=== PATIENT | female | born 1975 | race Caucasian/White ===

== ENCOUNTER 2022-10-16 03:18 | Observation (INO) ==
[2022-10-16] MEDS ORDERED: ONDANSETRON INJ 2 MG/ML 2 ML VIAL ONE ×2 (03:28→08:18)
[2022-10-16] MEDS ORDERED: MoRPHine SULFATE 4 MG/ML 1 ML CARP\\VIAL IV STA (03:28)
[2022-10-16] MEDS ORDERED: MoRPHine SULFATE 4 MG/ML 1 ML CARP\\VIAL ONE (03:28)
[2022-10-16] MEDS ORDERED: PIPERACILLIN/TAZOBACTAM 4.5 GM/120ML D5W IV ONE (03:28)
[2022-10-16] MEDS ORDERED: ONDANSETRON INJ 2 MG/ML 2 ML VIAL IV STA (03:28)
[2022-10-16] MEDS ORDERED: PIPERACILLIN/TAZOBACTAM 4.5 GM/120 ML BAG IV ONE (03:28)
[2022-10-16] MEDS ORDERED: SODIUM CHLORIDE 0.9% 1000ML 1,000 ML IV STA (03:28)
[2022-10-16 03:54] LABS: Basophils # (auto) 0.01 K/uL (0-0.2); Basophils % (auto) 0.1 %; Eosinophils # (auto) 0.07 K/uL (0-0.50); Eosinophils % (auto) 0.5 %; Hematocrit (blood only) 36.7 % (34.1-44.9); Hemoglobin 12.9 g/dl (12.0-16.0); Immature Granulocytes # (auto) 0.03 K/uL (0.00-0.02); Immature Granulocytes % (auto) 0.2 %; Lymphocytes # (auto) 1.27 K/uL (1.2-3.4); Lymphocytes % (auto) 9.7 %; Mean Corpuscular Hgb Conc 35.1 g/dL (32.0-36.0); Mean Corpuscular Volume 88.2 fL (80.0-100.0); Mean Platelet Volume 9.7 fL (9.4-12.3); Monocytes # (auto) 0.71 K/uL (0.24-0.82); Monocytes % (auto) 5.4 %; Neutrophils % (auto) 84.1 %; Platelet Count 267 K/uL (130-400); RDW Coefficient of Variation 12.3 % (11.5-14.5); RDW Standard Deviation 39.5 fL (36.4-46.3); Red Blood Count 4.16 M/uL (3.93-5.22); White Blood Count 13.09 K/ul (4.8-10.8)
[2022-10-16] MEDS: HYDROmorphone INJ 0.5 MG/0.5 ML SYR IV PRN ×6 (04:03→05:52)
--- NOTE | 2022-10-16 04:18 | Emergency Department Note ---
History of Present Illness General Chief complaint: Vaginal Pain Time Seen by Provider: 10/16/22 03:24 History of Present Illness Maximum Pain Intensity: 10 This 47-year-old who had a hysterectomy done at this facility 8 weeks ago presents to the ER complaining of vaginal pain and something hanging out of her uterus Location: Vaginal Quality: Painful Severity: Severe Duration: Tonight Timing: Tonight Context: Patient was concerned and came in Modifying factors: better with nothing; worse with activity Patient states she was having intercourse, dog's tail, and had severe pain and had to stop. She then went to the bathroom and had something hanging out of her vagina and called EMS. Patient states she had a normal postop with [facility]. She had intercourse since. Patient denies fall, trauma, bleeding disorders. She states she is healthy with no real active medical problems. Home Medications Medication Instructions Recorded Confirmed Type Allergy Pill 1 dose PO QAM 07/11/22 07/20/22 History albuterol sulfate 90 mcg/actuation 1 inh inhalation UD PRN ASTHMA 07/11/22 07/20/22 History aerosol inhaler (Ventolin HFA) mometasone-formoterol HFA 200 2 puff inhalation BID 07/11/22 07/20/22 History mcg-5 mcg/actuation aerosol inhaler (Dulera) montelukast 10 mg tablet 10 mg PO QAM 07/11/22 07/20/22 History (Singulair) triamcinolone acetonide 55 mcg 2 spray intranasal QAM 07/11/22 07/20/22 History nasal spray aerosol (Nasacort Allergy) Allergies Allergy/AdvReac Type Severity Reaction Status Date / Time No Known Allergies Allergy Unknown Verified 07/20/22 06:22 Past Med/Surg History Medical History Anxiety CURRENTLY HIGHER D/T UPCOMING SX CONTROLS ON OWN Asthma CURRENTLY WELL CONTROLLED, FLARES IN WINTER History of kidney stones Surgical History History of left breast biopsy IMPLANTED RIBBON (REMAINS) History of urologic surgery FOR KIDNEY STONE/LASER SX (2000) Family History Grandmother (Maternal) Family history of diabetes mellitus Social History Smoking Status: Never smoker Second Hand Exposure: No; Hx Alcohol Use: Yes Hx Substance Use: No Preferred Language: Pashto Communication Ability: Effective Education Consultant Required: No Beliefs That Will Affect Care: None Current Living Situation: Spouse and Family Current Living Situation Comment: AND MOTHER IN LAW Feels Safe at Home: Yes Assistive Devices: Glasses Review of Systems A total of 10 systems reviewed and were otherwise negative Physical Exam Vital Signs Vital Signs - 24 hr 10/16/22 03:24 10/16/22 03:51 10/16/22 05:00 Temperature 36.7 C Temperature Source Oral Pulse Rate 92 H Pulse Rate [Finger] 83 Respiratory Rate 18 18 Blood Pressure 130/76 Blood Pressure [Right Arm] 126/84 Blood Pressure Mean 94 Blood Pressure Mean [Right Arm] 98 Pulse Oximetry 100 100 100 Oxygen Delivery Method Room Air Room Air Room Air Sepsis Recent Fever Within 48 Hours No Sepsis New/Unexplained Change in Mental Status No Sepsis Action Taken by Nursing No Action Required VITALS: Vitals are noted on the nurse's note and reviewed by myself. Vital signs stable. GENERAL: Pleasant female who appears in pain, in no acute distress, nondiaphoretic, well-developed well-nourished. SKIN: The skin was without rashes, erythema, edema, or bruising. There is no tenting of the skin. Capillary reflex less than 2 seconds. HEAD: Normocephalic atraumatic. EARS: External auditory canals clear, EYES: Pupils equal round and reactive to light and accommodation. Conjunctivae without injection, sclerae without icterus. Extraocular movements intact. NOSE: Patent, turbinates without inflammation or discharge MOUTH: Mucous membranes moist. Pharynx without erythema or exudate. Uvula midline. Airway patent. Tongue does not deviate. NECK: Supple without nuchal rigidity. No lymphadenopathy. No thyromegaly. Cervical spine is nontender. No JVD. HEART: Regular rate and rhythm LUNGS: Clear to auscultation bilaterally without wheezes, rales or rhonchi. No retractions or accessory muscle use. ABDOMEN: Positive bowel sounds x 4. Normal tympanic percussion. Soft, nontender, without masses or organomegaly. Smith sign negative. No guarding or rebound tenderness. No CVA tenderness exam: External vaginal genitalia with small small intestines coming out of the vaginal canal MUSCULOSKELETAL: No muscle atrophy, erythema, or edema noted. NEURO: Patient was alert and oriented to person place and time. Normal sensation to light and sharp touch. No focal neurological deficits. Course Administered Medications Hydromorphone HCl (Hydromorphone Inj 0.5 Mg/0.5 Ml Syr) 0.5 mg IV Q15M PRN PRN Reason: Pain Stop: 10/30/22 04:00 Last Admin: 10/16/22 05:22 Dose: 0.5 mg Documented By: Admin: 10/16/22 05:07 Dose: 0.5 mg Documented By: Admin: 10/16/22 04:37 Dose: 0.5 mg Documented By: Admin: 10/16/22 04:03 Dose: 0.5 mg Documented By: DEBBIE Discontinued Medications Sodium Chloride (Nss 1000ml) 1,000 mls @ 999 mls/hr IV .Q1H1M STA Stop: 10/16/22 04:28 Last Infusion: 10/16/22 04:43 Dose: 0 mls/hr Documented By: Admin: 10/16/22 03:35 Dose: 999 mls/hr Documented By: DEBBIE Piperacillin Sod/Tazobactam Sod (Zosyn) 4.5 gm in 120 mls @ 240 mls/hr IV NOW ONE Stop: 10/16/22 03:57 Last Infusion: 10/16/22 04:09 Dose: 0 mls/hr Documented By: Admin: 10/16/22 03:35 Dose: 240 mls/hr Documented By: DEBBIE Lactated Ringer's (Lr) 1,000 mls @ 999 mls/hr IV .Q1H1M MAGNUS Stop: 10/16/22 05:30 Last Admin: 10/16/22 04:41 Dose: 999 mls/hr Documented By: DEBBIE Morphine Sulfate (Morphine Sulfate 4 Mg/Ml 1 Ml Carp\Vial) Confirm Administered Dose 4 mg .ROUTE .STK-MED ONE Stop: 10/16/22 03:29 Last Admin: 10/16/22 03:35 Dose: 4 mg Documented By: DEBBIE Morphine Sulfate (Morphine Sulfate 4 Mg/Ml 1 Ml Carp\Vial) 4 mg IV NOW STA Stop: 10/16/22 03:29 Last Admin: 10/16/22 03:45 Dose: 4 mg Documented By: DEBBIE Ondansetron HCl (Ondansetron Inj 2 Mg/Ml 2 Ml Vial) Confirm Administered Dose 4 mg .ROUTE .STK-MED ONE Stop: 10/16/22 03:29 Last Admin: 10/16/22 03:53 Dose: Not Given Documented By: DEBBIE Ondansetron HCl (Ondansetron Inj 2 Mg/Ml 2 Ml Vial) 4 mg IV NOW STA Stop: 10/16/22 03:29 Last Admin: 10/16/22 03:35 Dose: 4 mg Documented By: DEBBIE Piperacillin Sod/Tazobactam Sod (Piperacillin/Tazobactam 4.5 Gm/120ml D5w) Confirm Administered Dose 4.5 gm IV .STK-MED ONE Stop: 10/16/22 03:29 Last Admin: 10/16/22 03:54 Dose: Not Given Documented By: DEBBIE Critical Care Time Critical Care Time: Yes Total Critical Care Time: 35 I have personally spent 35 minutes of critical care time in the direct management of this patient. This includes bedside care, interpretation of diagnostic studies, and testing, discussion with consultants, patient, and family members, and other required patient management activities. This 35 minutes is in excess of all separately billable procedures. Medical Decision Making Medical Records Attestation: I reviewed the patient's medical records. Home Medications Current Medication List: was personally reviewed by me Laboratory Data Attestation: I reviewed the patient's lab results. Result diagrams: 10/16/22 03:40 10/16/22 03:40 Lab Results 10/16/22 10/16/22 10/16/22 Range/Units 03:40 03:40 03:40 WBC 13.09 H (4.8-10.8) K/ul RBC 4.16 (3.93-5.22) M/uL Hgb 12.9 (12.0-16.0) g/dl POC Hgb (12.0-16.0) g/dl Hct 36.7 (34.1-44.9) % POC Hct (37-47) % MCV 88.2 (80.0-100.0) fL MCH 31.0 (25.0-34.0) pg MCHC 35.1 (32.0-36.0) g/dL RDW Std Deviation 39.5 (36.4-46.3) fL RDW Coeff of Doreen 12.3 (11.5-14.5) % Plt Count 267 (130-400) K/uL MPV 9.7 (9.4-12.3) fL Immature Gran % (Auto) 0.2 % Neut % (Auto) 84.1 % Lymph % (Auto) 9.7 % [place] % (Auto) 5.4 % Eos % (Auto) 0.5 % Baso % (Auto) 0.1 % Neut # (Auto) 11.00 H (1.4-6.5) K/uL Lymph # (Auto) 1.27 (1.2-3.4) K/uL [place] # (Auto) 0.71 (0.24-0.82) K/uL Eos # (Auto) 0.07 (0-0.50) K/uL Baso # (Auto) 0.01 (0-0.2) K/uL Immature Gran # (Auto) 0.03 H (0.00-0.02) K/uL POC Sodium (135-144) mmol/L Sodium 140 (136-145) mmol/L POC Potassium (3.3-5.0) mmol/L Potassium 3.4 L (3.5-5.1) mmol/L POC Chloride (101-112) mmol/L Chloride 109 H (98-107) mmol/L Carbon Dioxide 22 (21-32) mmol/L POC Total CO2 (24-31) mmol/L Anion Gap 9 (3-11) POC Anion Gap (16-25) mmol/L POC BUN (7-18) mg/dl BUN 14 (6-23) mg/dl Creatinine 0.66 (0.6-1.2) mg/dl POC Creatinine (0.6-1.3) mg/dl Est Cr Clr Drug Dosing Not Reportable Est GFR ( Amer) 122.8 ml/min Est GFR (Non-Af Amer) 105.9 ml/min BUN/Creatinine Ratio 21.2 H (10-20) Glucose 118 H (70-99(Fasting)) mg/dl POC Glucose (other) (70-99) mg/dl Calcium 8.7 (8.5-10.1) mg/dl POC Ioniz Calcium Era (1.12-1.32) mmol/l Total Bilirubin 0.7 (0.2-1.0) mg/dl AST 9 L (13-39) U/L ALT 7 (7-52) U/L Alkaline Phosphatase 48 (34-104) U/L Total Protein 6.7 (6.0-8.3) gm/dl Albumin 4.1 (3.4-5.0) gm/dl Globulin 2.6 (2.5-4.0) gm/dl Albumin/Globulin Ratio 1.6 (0.9-2) SARS-CoV-2, RNA, NAAT NEGATIVE (NEGATIVE) Blood Type Antibody Screen 10/16/22 10/16/22 Range/Units 03:45 04:01 WBC (4.8-10.8) K/ul RBC (3.93-5.22) M/uL Hgb (12.0-16.0) g/dl POC Hgb 12.9 (12.0-16.0) g/dl Hct (34.1-44.9) % POC Hct 38 (37-47) % MCV (80.0-100.0) fL MCH (25.0-34.0) pg MCHC (32.0-36.0) g/dL RDW Std Deviation (36.4-46.3) fL RDW Coeff of Doreen (11.5-14.5) % Plt Count (130-400) K/uL MPV (9.4-12.3) fL Immature Gran % (Auto) % Neut % (Auto) % Lymph % (Auto) % [place] % (Auto) % Eos % (Auto) % Baso % (Auto) % Neut # (Auto) (1.4-6.5) K/uL Lymph # (Auto) (1.2-3.4) K/uL [place] # (Auto) (0.24-0.82) K/uL Eos # (Auto) (0-0.50) K/uL Baso # (Auto) (0-0.2) K/uL Immature Gran # (Auto) (0.00-0.02) K/uL POC Sodium 143 (135-144) mmol/L Sodium (136-145) mmol/L POC Potassium 3.0 L (3.3-5.0) mmol/L Potassium (3.5-5.1) mmol/L POC Chloride 107 (101-112) mmol/L Chloride (98-107) mmol/L Carbon Dioxide (21-32) mmol/L POC Total CO2 20 L (24-31) mmol/L Anion Gap (3-11) POC Anion Gap 20.0 (16-25) mmol/L POC BUN 13 (7-18) mg/dl BUN (6-23) mg/dl Creatinine (0.6-1.2) mg/dl POC Creatinine 0.6 (0.6-1.3) mg/dl Est Cr Clr Drug Dosing Est GFR ( Amer) ml/min Est GFR (Non-Af Amer) ml/min BUN/Creatinine Ratio (10-20) Glucose (70-99(Fasting)) mg/dl POC Glucose (other) 112 H (70-99) mg/dl Calcium (8.5-10.1) mg/dl POC Ioniz Calcium Era 1.13 (1.12-1.32) mmol/l Total Bilirubin (0.2-1.0) mg/dl AST (13-39) U/L ALT (7-52) U/L Alkaline Phosphatase (34-104) U/L Total Protein (6.0-8.3) gm/dl Albumin (3.4-5.0) gm/dl Globulin (2.5-4.0) gm/dl Albumin/Globulin Ratio (0.9-2) SARS-CoV-2, RNA, NAAT (NEGATIVE) Blood Type O Positive Antibody Screen NEGATIVE MDM Narrative Prior records/ancillary studies reviewed. Triage Nursing notes reviewed. Additional history obtained from family. The patient's history was concerning for pelvic pain. Differential diagnosis: Etiologies such as post surgical complication, ruptured ovarian cyst, ovarian torsion, appendicitis, diverticulitis, UTI, obstruction, mesenteric ischemia, aortic pathology, infections, inflammatory bowel disease, renal colic, as well as others were entertained. Physical examination findings: As above. ER treatment provided: 2 lines were immediately placed, patient was given antibiotics pain meds and sterile gauze and drapes were placed over the small intestines protruding out of the vaginal canal OB and surgery immediately consulted. Consent paperwork was filled out and patient will be taken to the OR Nurse was unable to obtain the Felipe due to excessive amount of intestines protruding out the vaginal canal On reassessment the patient felt better. Diagnostics interpreted by me: The labs revealed stable H&H Consultation: A consultation was placed with the OB and surgery. The case was discussed and diagnostics were reviewed. The patient was evaluated in the ER for further treatment. Exam and history seem consistent with prolapse of the intestine from recent hysterectomy. Patient was immediately seen and OB and surgery were immediately called. Patient will be taken to the OR for further evaluation and treatment. 2 lines were placed. Patient is given antibiotics and pain meds. She was typed and screened. Patient is agreeable. By the evaluation outlined above emergent etiologies such as ruptured ovarian cyst, ovarian torsion, appendicitis, PID, diverticulitis, UTI, mesenteric i schemia, aortic pathology, infections, inflammatory bowel disease, renal colic, as well as others were deemed relatively unlikely. The pt informed about the findings as listed above. All questions were answered and pleased with the treatment. The chart was completed utilizing [employer] Speech voice recognition software. Grammatical errors, random word insertions, pronoun errors, and incomplete sentences are an occassional consequence of this system due to software limitations, ambient noise, and hardware issues. Any formal questions or concerns about the content, text, or information contained within the body of this dictation should be directly addressed to the physician nurse assistant for clarification. Impression & Plan Prolapsed, intestine, Post surgical complication Discharge Plan Visit Data Chief Complaint: Vaginal Pain ED Provider: Kody Little ED Midlevel Provider: Felicity Cruz Discharge Problem: Prolapsed, intestine, Post surgical complication Patient Disposition: Admitted As Inpatient Condition: Fair Forms Stand Alone Forms: [employer] Prescriptions Prescriptions: No Action Allergy Pill 1 dose PO QAM Label Comments: LIKE CLARITIN OR DARION [employer]AND CURRENT montelukast [Singulair] 10 mg Tablet 10 mg PO QAM albuterol sulfate [Ventolin HFA] 90 mcg/actuation Hfa Aerosol Inhaler 1 inh INHALATION UD PRN (Reason: ASTHMA) triamcinolone acetonide [Nasacort Allergy] 55 mcg Aerosol,[place] 2 spray INTRANASAL QAM Rx Instructions: administer into each nostril Dulera 200-5 mcg/actuation Hfa Aerosol Inhaler 2 puff INHALATION BID Referrals Referrals: PCP,NO [Physician] -
[2022-10-16 04:19] LABS: Alanine Aminotransferase 7 U/L (7-52); Albumin Globulin Ratio 1.6 (0.9-2); Albumin Level 4.1 gm/dl (3.4-5.0); Alkaline Phosphatase 48 U/L (34-104); Anion Gap 9 (3-11); Aspartate Aminotransferase 9 U/L (13-39); BUN Creatinine Ratio 21.2 (10-20); Bilirubin,Total 0.7 mg/dl (0.2-1.0); Blood Urea Nitrogen 14 mg/dl (6-23); Calcium 8.7 mg/dl (8.5-10.1); Carbon Dioxide 22 mmol/L (21-32); Chloride 109 mmol/L (98-107); Est GFR (African American) 122.8 ml/min; Est GFR (Non-African American) 105.9 ml/min; Globulin 2.6 gm/dl (2.5-4.0); Glucose 118 mg/dl (70-99(Fasting)); Potassium 3.4 mmol/L (3.5-5.1); Sodium 140 mmol/L (136-145); Total Protein 6.7 gm/dl (6.0-8.3)
[2022-10-16] MEDS ORDERED: ONDANSETRON INJ 2 MG/ML 2 ML VIAL IV PRN ×3 (04:21→11:46)
[2022-10-16 04:29] LABS: iSTAT Creatinine 0.6 mg/dl (0.6-1.3); iSTAT Hemoglobin 12.9 g/dl (12.0-16.0); iSTAT Ionized Calcium 1.13 mmol/l (1.12-1.32)
[2022-10-16] MEDS ORDERED: LACTATED RINGER'S 1,000 ML IV SCH ×2 (04:30→06:00)
--- NOTE | 2022-10-16 04:33 | History & Physical Report ---
Date of Service October 16, 2022 Assessment & Plan (1) Prolapsed, intestine: Plan: Repair of cuff dehiscence in OR (2) Post surgical complication: (3) Encounter for pre-operative examination: History of Present Illness Chief Complaint: vaginal pain Primary Care Provider: NO PCP 47 F P s/p robotic hysterectomy 07/20/22 presents to ER after having intercourse earlier and had to stop due to severe vaginal and abdominal pain. Allergies Allergy/AdvReac Type Severity Reaction Status Date / Time No Known Allergies Allergy Unknown Verified 07/20/22 06:22 Home Medications Medication Instructions Recorded Confirmed Type Allergy Pill 1 dose PO QAM 07/11/22 07/20/22 History albuterol sulfate 90 mcg/actuation 1 inh inhalation UD PRN ASTHMA 07/11/22 07/20/22 History aerosol inhaler (Ventolin HFA) mometasone-formoterol HFA 200 2 puff inhalation BID 07/11/22 07/20/22 History mcg-5 mcg/actuation aerosol inhaler (Dulera) montelukast 10 mg tablet 10 mg PO QAM 07/11/22 07/20/22 History (Singulair) triamcinolone acetonide 55 mcg 2 spray intranasal QAM 07/11/22 07/20/22 History nasal spray aerosol (Nasacort Allergy) Patient History Medical History Anxiety CURRENTLY HIGHER D/T UPCOMING SX CONTROLS ON OWN Asthma CURRENTLY WELL CONTROLLED, FLARES IN WINTER History of kidney stones Surgical History History of left breast biopsy IMPLANTED RIBBON (REMAINS) History of urologic surgery FOR KIDNEY STONE/LASER SX (2000) Family History Grandmother (Maternal) Family history of diabetes mellitus Social History Smoking Status: Never smoker Second Hand Exposure: No; Hx Alcohol Use: Yes Hx Substance Use: No Preferred Language: Mongolian Communication Ability: Effective Management And Budget Analyst Required: No Beliefs That Will Affect Care: None Current Living Situation: Spouse and Family Current Living Situation Comment: AND MOTHER IN LAW Feels Safe at Home: Yes Assistive Devices: Glasses 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 hysterectomy 07/20/22 Review of Systems All systems reviewed & are unremarkable except as noted in HPI & below Physical Exam Constitutional: WD/WN, vitals as above Eyes: PERRL, conjunctivae normal, anicteric sclerae Neck: trachea midline, no thyromegaly Respiratory: normal respiratory effort, lungs clear to auscultation Cardiovascular: RRR, no murmur, no edema Gastrointestinal (Abdomen): abdomen with severe pain and guarding Musculoskeletal: Extremities: extremities normal to inspection Skin: no rashes, warm and dry Neurologic: patellar DTR's 2+ bilat, sensation intact Psychiatric: A+Ox3, euthymic affect Results & Data ([facility]) Vital Signs (Past 12 Hours) Vital Signs Temp Pulse Resp BP Pulse Ox O2 Del Method 10/16/22 03:51 100 Room Air 10/16/22 03:24 36.7 C 92 H 18 130/76 100 Room Air Laboratory Results Laboratory Results - last 24 hr 10/16/22 10/16/22 10/16/22 03:40 03:40 03:40 WBC 13.09 H RBC 4.16 Hgb 12.9 POC Hgb Hct 36.7 POC Hct MCV 88.2 MCH 31.0 MCHC 35.1 RDW Std Deviation 39.5 RDW Coeff of Doreen 12.3 Plt Count 267 MPV 9.7 Immature Gran % (Auto) 0.2 Neut % (Auto) 84.1 Lymph % (Auto) 9.7 [place] % (Auto) 5.4 Eos % (Auto) 0.5 Baso % (Auto) 0.1 Neut # (Auto) 11.00 H Lymph # (Auto) 1.27 [place] # (Auto) 0.71 Eos # (Auto) 0.07 Baso # (Auto) 0.01 Immature Gran # (Auto) 0.03 H POC Sodium Sodium 140 POC Potassium Potassium 3.4 L POC Chloride Chloride 109 H Carbon Dioxide 22 POC Total CO2 Anion Gap 9 POC Anion Gap POC BUN BUN 14 Creatinine 0.66 POC Creatinine Est Cr Clr Drug Dosing Not Reportable Est GFR ( Amer) 122.8 Est GFR (Non-Af Amer) 105.9 BUN/Creatinine Ratio 21.2 H Glucose 118 H POC Glucose (other) Calcium 8.7 POC Ioniz Calcium Era Total Bilirubin 0.7 AST 9 L ALT 7 Alkaline Phosphatase 48 Total Protein 6.7 Albumin 4.1 Globulin 2.6 Albumin/Globulin Ratio 1.6 SARS-CoV-2, RNA, NAAT NEGATIVE Blood Type Antibody Screen 10/16/22 10/16/22 03:45 04:01 WBC RBC Hgb POC Hgb 12.9 Hct POC Hct 38 MCV MCH MCHC RDW Std Deviation RDW Coeff of Doreen Plt Count MPV Immature Gran % (Auto) Neut % (Auto) Lymph % (Auto) [place] % (Auto) Eos % (Auto) Baso % (Auto) Neut # (Auto) Lymph # (Auto) [place] # (Auto) Eos # (Auto) Baso # (Auto) Immature Gran # (Auto) POC Sodium 143 Sodium POC Potassium 3.0 L Potassium POC Chloride 107 Chloride Carbon Dioxide POC Total CO2 20 L Anion Gap POC Anion Gap 20.0 POC BUN 13 BUN Creatinine POC Creatinine 0.6 Est Cr Clr Drug Dosing Est GFR ( Amer) Est GFR (Non-Af Amer) BUN/Creatinine Ratio Glucose POC Glucose (other) 112 H Calcium POC Ioniz Calcium Era 1.13 Total Bilirubin AST ALT Alkaline Phosphatase Total Protein Albumin Globulin Albumin/Globulin Ratio SARS-CoV-2, RNA, NAAT Blood Type Pending Antibody Screen Pending Code Status & VTE Plan VTE Prophylaxis Plan VTE Prophylaxis will be ordered: No
--- NOTE | 2022-10-16 04:38 | Surgery Consultation ---
Date of Consultation October 16, 2022 Assessment & Plan (1) Prolapsed, intestine: Plan Spoke with Dr. Bill who plans to take patient to OR for repair of vaginal cuff dehiscence. He would like General Surgery, Dr. Hodges, on standby in case there is issue with the bowel. Dr. Hodges has been made aware and will be in to see patient. Additional recommendations will be based on patient's clinical course as it unfolds, operative findings, and postoperative recovery. Remaining plan as directed by the primary/METAL [employer]ER service. Supervising Physician Co-Signing Physician Notes Dr. Hodges History of Present Illness Reason for Consultation: Prolapse of intestine Requesting Physician: Felicity Cruz History of Present Illness 47-year-old female who presents to [facility] ED for vaginal pain. Significant other is at bedside. She is s/p Robotic Laparoscopic Hysterectomy, Bilateral Salpingectomy and Cystoscopy with Dr. Corin Medina on 07/20/2022. Patient states that she was having intercourse earlier this evening and developed severe pain. She states that she went to the bathroom and noticed that something was hanging out of her vagina. She was brought to the ED via EMS. Crystal does state that she has had intercourse since her hysterectomy. She states that her pain is constant and that nothing makes it better. Allergies Allergy/AdvReac Type Severity Reaction Status Date / Time No Known Allergies Allergy Unknown Verified 07/20/22 06:22 Home Medications Medication Instructions Recorded Confirmed Type Allergy Pill 1 dose PO QAM 07/11/22 07/20/22 History albuterol sulfate 90 mcg/actuation 1 inh inhalation UD PRN ASTHMA 07/11/22 07/20/22 History aerosol inhaler (Ventolin HFA) mometasone-formoterol HFA 200 2 puff inhalation BID 07/11/22 07/20/22 History mcg-5 mcg/actuation aerosol inhaler (Dulera) montelukast 10 mg tablet 10 mg PO QAM 07/11/22 07/20/22 History (Singulair) triamcinolone acetonide 55 mcg 2 spray intranasal QAM 07/11/22 07/20/22 History nasal spray aerosol (Nasacort Allergy) Patient History Medical History Anxiety CURRENTLY HIGHER D/T UPCOMING SX CONTROLS ON OWN Asthma CURRENTLY WELL CONTROLLED, FLARES IN WINTER History of kidney stones Surgical History History of left breast biopsy IMPLANTED RIBBON (REMAINS) History of urologic surgery FOR KIDNEY STONE/LASER SX (2000) Family History Grandmother (Maternal) Family history of diabetes mellitus Social History Smoking Status: Never smoker Second Hand Exposure: No; Hx Alcohol Use: Yes Hx Substance Use: No Preferred Language: Togolese Communication Ability: Effective Spinning Frame Fixer Required: No Beliefs That Will Affect Care: None Current Living Situation: Spouse and Family Current Living Situation Comment: AND MOTHER IN LAW Feels Safe at Home: Yes Assistive Devices: Glasses Review of Systems Genitourinary: + pelvic pain and + prolapse symptoms Physical Exam Constitutional: WD/WN, vitals as above Respiratory: normal respiratory effort, lungs clear to auscultation Cardiovascular: RRR, no murmur, no edema Gastrointestinal (Abdomen): Abdomen exquisitely tender with palpation. Skin: no rashes, warm and dry Psychiatric: A+Ox3, euthymic affect Results & Data ([facility]) Vital Signs (Past 12 Hours) Vital Signs Temp Pulse Resp BP Pulse Ox O2 Del Method 10/16/22 03:51 100 Room Air 10/16/22 03:24 36.7 C 92 H 18 130/76 100 Room Air PG Care Time/CCT Total # of Minutes Spent Total Time Spent with Patient: Total time spent is greater than 50% in coordination of care (as documented) at patient's floor/unit and/or counseling patient: Coding Level of Care Code 93869 Inpt Consult Level 3 Diagnoses Prolapsed, intestine K63.4
[2022-10-16] MEDS: HYDROmorphone INJ 1 MG/ML SYRINGE IV PRN ×5 (06:26→08:09)
[2022-10-16] MEDS ORDERED: SODIUM CHLORIDE 0.9% 1000ML 1,000 ML IV SCH (06:45)
[2022-10-16] MEDS ORDERED: LORazepam 2 MG/1 ML VIAL IV STA (07:55)
[2022-10-16] MEDS ORDERED: fentaNYL citrate 100 MCG/2 ML VIAL ONE (08:06)
[2022-10-16] MEDS ORDERED: MIDAZOLAM HCL 1 MG/ML 2ML VIAL ONE (08:06)
--- NOTE | 2022-10-16 08:10 | Emergency Department Note ---
ED Visit Note Patient was seen by Cyndy Cruz PA-C and patient was pending operative intervention by gynecology. I was alerted by the patient's RN around 0745 hrs on 10/16/22 that the patient has been experiencing pain and requiring Dilaudid. It was ordered as 1 mg every 15 minutes. Secondary to volume and acuity of the ED nurse notes she was not able to be at bedside every 15 minutes to administer this and patient/male at bedside were frustrated noting her pain. I then went to bedside. I talked with the patient regarding her symptoms as well as male at bedside. I then asked our charge nurse to reach out to the operating room to identify ETA on operation as well as page the metal wire technician that had already seen the patient and was planning on surgery to review timeline/plan of care. I did order Ativan for the patient as she did seem anxious and notes that she was feeling anxious about the procedure as time was going on. Her oxygen was monitored closely. She was oxygenating well. She was alert and oriented. At 8:13 AM I spoke with Dr. Bill. It was shift change. He notes his colleague, Dr. Whitaker will be performing the surgery. Scheduled time is for 9 AM this morning. I then went to bedside to update the patient and review plan of care. I did also enlist the help of our ED charge nurse as well as house wirer to help coordinate. At 8:[address] Whitaker was then at bedside. I then updated patient on plan of care again around 8:31am. Patient will now be taken to the operative suite for further evaluation and management. .
[2022-10-16] MEDS ORDERED: ROCURONIUM BROMIDE 10 MG/ML 5 ML VIAL IV ONE (08:18)
[2022-10-16] MEDS ORDERED: DEXAMETHASONE SOD INJ 4 MG/ML VIAL ONE (08:18)
[2022-10-16] MEDS ORDERED: LIDOCAINE 2% MPF LOCAL 5 ML VIAL INFIL ONE (08:18)
[2022-10-16] MEDS ORDERED: PROPOFOL IV EMULSION 10 MG/ML 20 ML VIAL IV ONE (08:18)
--- NOTE | 2022-10-16 08:25 | Anesthesiology Consultation ---
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 Surgery Operation Date: 10/16/22 08:20 Proposed Procedures p Vaginal Cuff Repair - Ian Bill MD Height/Weight Weight: 75 kg Allergies Allergy/AdvReac Type Severity Reaction Status Date / Time No Known Allergies Allergy Unknown Verified 07/20/22 06:22 Medications Home Medications Medication Instructions Recorded Confirmed Last Taken Allergy Pill 1 dose PO QAM 07/11/22 07/20/22 07/17/22 albuterol sulfate 90 mcg/actuation 1 inh inhalation UD PRN ASTHMA 07/11/22 07/20/22 Unknown aerosol inhaler (Ventolin HFA) mometasone-formoterol HFA 200 2 puff inhalation BID 07/11/22 07/20/22 07/19/22 20:30 mcg-5 mcg/actuation aerosol inhaler (Dulera) montelukast 10 mg tablet 10 mg PO QAM 07/11/22 07/20/22 07/19/22 07:00 (Singulair) triamcinolone acetonide 55 mcg 2 spray intranasal QAM 07/11/22 07/20/22 07/19/22 07:00 nasal spray aerosol (Nasacort Allergy) Active Medications Generic Name Dose Route Start Last Admin Trade Name Freq PRN Reason Stop Dose Admin Hydromorphone HCl 1 mg 10/16/22 06:23 10/16/22 08:09 Hydromorphone Inj 1 Mg/Ml Syringe IV 10/30/22 06:22 1 mg Q15M PRN Administration Pain Sodium Chloride 1,000 mls @ 125 mls/hr 10/16/22 06:45 10/16/22 06:45 Nss 1000ml IV 11/15/22 06:44 125 mls/hr .Q8H MAGNUS Administration Past Medical History Medical History Anxiety CURRENTLY HIGHER D/T UPCOMING SX CONTROLS ON OWN Asthma CURRENTLY WELL CONTROLLED, FLARES IN WINTER History of kidney stones Past Family History Family History Grandmother (Maternal) Family history of diabetes mellitus Past Surgical History Surgical History History of left breast biopsy IMPLANTED RIBBON (REMAINS) History of urologic surgery FOR KIDNEY STONE/LASER SX (2000) Social History Smoking Status: Never smoker tobacco type: cigarettes Hx Alcohol Use: Yes alcohol intake frequency: holidays/special occasions only Hx Substance Use: No substance use type: does not use Physical Exam Vital Signs Last Vital Signs Temp 98.1 F 10/16/22 03:24 Pulse 83 10/16/22 05:00 Resp 18 10/16/22 05:00 BP 126/84 10/16/22 05:00 Pulse Ox 100 10/16/22 05:00 O2 Del Method 10/16/22 05:00 Testing Laboratory Results 10/16/22 03:40 10/16/22 03:40 Blood Type O Positive 10/16/22 03:45 Antibody Screen NEGATIVE 10/16/22 03:45 10/16/22 04:01 POC Glucose (other) 112 H
[2022-10-16] MEDS ORDERED: ePHEDrine sulfate 50 MG/ML AMP IV PRN (08:34)
[2022-10-16] MEDS ORDERED: fentaNYL citrate 100 MCG/2 ML VIAL IV PRN (08:34)
[2022-10-16] MEDS ORDERED: ATROPINE SULFATE 0.1 MG/ML 10ML SYR IV PRN (08:34)
--- NOTE | 2022-10-16 08:44 | History & Physical Bridge Note ---
Date of Service October 16, 2022 History & Physical Bridge Note I have examined the patient, reviewed the History & Physical and in the interval since the performance of the History & Physical I have noted the following changes of clinical significance: no changes noted
--- NOTE | 2022-10-16 08:45 | Progress Note ---
Date of Service October 16, 2022 Assessment & Plan (1) Prolapsed, intestine: Plan: Pt discussed with Dr Bill met pt and spouse rediscussed surgery Plan repair of dehiscence diagnostic lap consent obtained Results & Data ([facility]) Vital Signs (Past 12 Hours) Vital Signs Temp Pulse Pulse Resp BP BP Pulse Ox 10/16/22 05:00 83 18 126/84 100 10/16/22 03:51 100 10/16/22 03:24 36.7 C 92 H 18 130/76 100 O2 Del Method 10/16/22 05:00 Room Air 10/16/22 03:51 Room Air 10/16/22 03:24 Room Air
[2022-10-16] MEDS ORDERED: BUPIVACAINE 0.5 % 5 MG/1 ML MPF 30ML VIAL ONE (09:36)
[2022-10-16] MEDS ORDERED: ceFAZolin 330 MG/ML 1 GM VIAL ONE (10:00)
[2022-10-16] MEDS ORDERED: ceFAZolin 2000MG 2,000 MG/15 ML SYR IV ONE (10:17)
[2022-10-16] MEDS ORDERED: NEOSTIGMINE METHYLSULFATE 1 MG/ML 10ML VIAL ONE (10:34)
[2022-10-16] MEDS ORDERED: GLYCOPYRROLATE 0.2 MG/ML VIAL ONE (10:34)
[2022-10-16] MEDS ORDERED: ACETAMINOPHEN 325 MG TAB PO PRN (11:46)
[2022-10-16] MEDS ORDERED: oxyCODONE/ACETAMINOPHEN 5mg/325mg TAB PO PRN ×2 (11:46)
--- NOTE | 2022-10-16 11:50 | Post Operative Brief Note ---
Immediate Post Op Note v1 Date of Surgery October 16, 2022 Pre & Post Diagnosis Operation Date: 10/16/22 08:20 Pre-Op Diagnosis: Vaginal cuff dehiscence Post-Op Diagnosis: Vaginal cuff dehiscence I identified the patient and participated in the time-out.: Yes Procedure Operation Date: 10/16/22 08:20 Actual Procedures p Repair of Dehisence Vaginal Cuff(Not Applicable) - Hunter Whitaker MD s Diagnostic laparoscopy with abdominal irrigation(Not Applicable) - Hunter Whitaker MD Surgeon Hunter Whitaker MD Lead Presser none Estimated Blood Loss 5 Findings Consistent with Post-Op Diagnosis Drains Felipe Catheter (18Fr. Felipe cateheter inserted by , without difficulty. Draining clear yellow urine. Removed at end of case. 700ml Urine output )
[2022-10-16] MEDS ORDERED: FLUMAZENIL 0.1 MG/1 ML 10 ML VIAL IV ONE (11:59)
--- NOTE | 2022-10-16 12:13 | Anesthesiology Progress Note ---
Date of Service October 16, 2022 Anesthesia Post Procedure Vital Signs Vital Signs: Temp Pulse Pulse Resp BP BP Pulse Ox 10/16/22 08:30 81 20 97 10/16/22 08:15 76 19 10/16/22 08:15 118/81 10/16/22 08:00 84 17 100 10/16/22 08:00 135/75 10/16/22 07:45 79 19 100 10/16/22 07:45 124/75 10/16/22 07:30 74 13 100 10/16/22 07:30 128/80 10/16/22 07:15 74 26 H 100 10/16/22 07:15 119/77 10/16/22 07:00 77 21 96 10/16/22 07:00 127/81 10/16/22 08:44 98.6 F 75 18 133/77 97 10/16/22 05:00 83 18 126/84 100 10/16/22 03:51 100 10/16/22 03:24 98.1 F 92 H 18 130/76 100 O2 Del Method 10/16/22 08:30 10/16/22 08:15 10/16/22 08:15 10/16/22 08:00 10/16/22 08:00 10/16/22 07:45 10/16/22 07:45 10/16/22 07:30 10/16/22 07:30 10/16/22 07:15 10/16/22 07:15 10/16/22 07:00 10/16/22 07:00 10/16/22 08:44 Room Air 10/16/22 05:00 Room Air 10/16/22 03:51 Room Air 10/16/22 03:24 Room Air Transfer of Care Handoff Completed per policy Notes Mental Status: alert / awake / arousable and participated in evaluation Patient Amnestic to Procedure: Yes Nausea / Vomiting: adequately controlled Pain: adequately controlled Airway Patency, RR, SpO2: stable & adequate BP & HR: stable & adequate Hydration State: stable & adequate Anesthetic Complications: no major complications apparent and Pt Satisfied with anesthetic care
--- NOTE | 2022-10-16 12:46 | Operative Report (OR) ---
DATE OF SURGERY: 10/16/2022. INDICATION FOR SURGERY: This is a 47-year-old status post robotic hysterectomy 3 months ago. The patient presented today with vaginal dehiscence and evisceration of bowel through the vagina. PREOPERATIVE DIAGNOSES: 1. Status post robotic vaginal hysterectomy. 2. Vaginal adhesions. 3. Bowel evisceration through the vagina. POSTOPERATIVE DIAGNOSES: 1. Status post robotic vaginal hysterectomy. 2. Vaginal adhesions. 3. Bowel evisceration through the vagina. PROCEDURE: 1. Examination under anesthesia. 2. Vaginal cuff repair. 3. Diagnostic laparoscopy. SURGEON: Hunter Whitaker MD. TRANSPORTATION OFFICER: None. ANESTHESIA: General. DRAINS: Felipe catheter. ESTIMATED BLOOD LOSS: 5 mL. INTRAVENOUS FLUIDS: 800 mL. URINE OUTPUT: 700 mL of clear urine at end of the procedure. SPECIMEN: None. INTRAOPERATIVE COMPLICATIONS: None. PATIENT CONDITION: Stable. DISPOSITION: Postanesthesia care unit. ATTESTATION: I performed the entire procedure. FINDINGS: Normal female escutcheon. Bowel was seen protruding through the vaginal introitus. Entire vaginal colpotomy side appeared open. Vaginal cuff to integrity appeared to be grossly normal. Laparoscopic findings at closure of the vaginal cuff. Vaginally, the cuff appeared to be intact and to be well closed. The bowel appeared to be grossly normal. There were no signs of necrosis on any part of the bowel. Copious amount of irrigation was used to irrigate the abdomen. Both ovaries were seen. DESCRIPTION OF PROCEDURE: The patient was taken to the operating room where she was prepped and draped in normal sterile fashion in dorsal lithotomy position. Felipe catheter was placed in the bladder. The vagina is as described under findings. The patient was placed in Trendelenburg position and moist sponge stick used to carefully push the bowel into the abdominal cavity. Once enough Trendelenburg was obtained, I could palpate the entire vaginal cuff. The vaginal cuff was closed with 0 Vicryl in [id number] closures were performed. Good cuff tissue was obtained in order to close the cuff adequately. Attention was paid to the abdominal part of the procedure where a supraumbilical incision was made with a scalpel. Veress needle was introduced into the abdomen at a 45-degree angle while tenting up the abdomen. Intraabdominal placement was confirmed with a water-filled syringe. Water suction and water drop test was performed. Abdomen is insufflated with 3 L of CO2 gas. The Veress needle was removed and a 5 mm nonbladed trocar was attached to the scope and introduced into the abdomen at a 45-degree angle while tenting of the scope. This was done under direct visualization. Once inside the abdomen, findings as dictated above. The patient was placed in Trendelenburg position and two more 5 mm accessory ports were placed on the left under direct visualization. Grasper was used to move the bowel out of the pelvis to better visualize the pelvic as stated above. I could clearly see the closure of the vagina from below. That was a good tight closure. Tissue integrity appeared to be good. Copious amount of irrigation was used to irrigate the pelvis and rest of the abdomen. A 4 L of fluid was used to irrigate the abdomen. All instruments were removed from the abdomen. All 3 trocars were removed and the skin closed with 4-0 Monocryl. The Felipe catheter was removed from the bladder. The patient sent to recovery in stable condition. Job ID: [id number] [facility]
[2022-10-16] MEDS: ceFAZolin 1000MG 1,000 MG/7.5 ML SYR IV SCH (18:44)
[2022-10-16] MEDS: LACTATED RINGER'S 1,000 ML IV SCH (19:29)
[2022-10-16] MEDS: IBUPROFEN 600 MG TAB PO PRN (23:28)
[2022-10-17] MEDS: ceFAZolin 1000MG 1,000 MG/7.5 ML SYR IV SCH ×2 (02:31→09:50)
[2022-10-17] MEDS: LACTATED RINGER'S 1,000 ML IV SCH (02:34)
[2022-10-17] MEDS: IBUPROFEN 600 MG TAB PO PRN (04:54)
[2022-10-17 08:05] LABS: Basophils # (auto) 0.02 K/uL (0-0.2); Basophils % (auto) 0.2 %; Eosinophils # (auto) 0.02 K/uL (0-0.50); Eosinophils % (auto) 0.2 %; Hemoglobin 10.3 g/dl (12.0-16.0); Immature Granulocytes # (auto) 0.04 K/uL (0.00-0.02); Immature Granulocytes % (auto) 0.4 %; Lymphocytes # (auto) 1.95 K/uL (1.2-3.4); Lymphocytes % (auto) 17.8 %; Mean Corpuscular Hemoglobin 30.7 pg (25.0-34.0); Mean Corpuscular Hgb Conc 34.3 g/dL (32.0-36.0); Mean Corpuscular Volume 89.6 fL (80.0-100.0); Mean Platelet Volume 9.7 fL (9.4-12.3); Monocytes # (auto) 0.83 K/uL (0.24-0.82); Monocytes % (auto) 7.6 %; Neutrophils # (auto) 8.09 K/uL (1.4-6.5); Neutrophils % (auto) 73.8 %; Platelet Count 209 K/uL (130-400); RDW Coefficient of Variation 12.7 % (11.5-14.5); RDW Standard Deviation 41.5 fL (36.4-46.3); Red Blood Count 3.35 M/uL (3.93-5.22); White Blood Count 10.95 K/ul (4.8-10.8)
[2022-10-17 08:50] LABS: Albumin Globulin Ratio 1.4 (0.9-2); Albumin Level 3.2 gm/dl (3.4-5.0); BUN Creatinine Ratio 9.4 (10-20); Bilirubin,Total 0.8 mg/dl (0.2-1.0); Calcium 7.9 mg/dl (8.5-10.1); Creatinine Clr Calc Pharmacy 116.1 ml/min; Globulin 2.3 gm/dl (2.5-4.0); Potassium 3.4 mmol/L (3.5-5.1); Total Protein 5.5 gm/dl (6.0-8.3)
--- NOTE | 2022-10-17 09:37 | Gynecologic Progress Note ---
Date of Service October 17, 2022 Assessment & Plan Admission and Anticipated Discharge Date Admission Date: October 16, 2022 Subjective Patient is seen and examined. She feels well, no complaints. Pain is under control with oral meds. Ambulating without dizziness Voiding without difficulty Tolerating regular diet with out N&V Flatus + BM neg Bleeding is minimal No fever/ chills/ CP/ SOB/ N&V/ Leg pain Vital Signs Temp Pulse Resp BP Pulse Ox O2 Del Method 10/17/22 07:29 36.7 C 84 16 120/73 97 Room Air 10/17/22 04:30 36.7 C 80 16 120/67 Room Air 10/17/22 00:30 36.4 C L 72 16 111/68 99 Room Air Lab Results 10/16/22 10/16/22 10/16/22 Range/Units 03:40 03:40 03:40 WBC 13.09 H (4.8-10.8) K/ul RBC 4.16 (3.93-5.22) M/uL Hgb 12.9 (12.0-16.0) g/dl POC Hgb (12.0-16.0) g/dl Hct 36.7 (34.1-44.9) % POC Hct (37-47) % MCV 88.2 (80.0-100.0) fL MCH 31.0 (25.0-34.0) pg MCHC 35.1 (32.0-36.0) g/dL RDW Std Deviation 39.5 (36.4-46.3) fL RDW Coeff of Doreen 12.3 (11.5-14.5) % Plt Count 267 (130-400) K/uL MPV 9.7 (9.4-12.3) fL Immature Gran % (Auto) 0.2 % Neut % (Auto) 84.1 % Lymph % (Auto) 9.7 % Upton % (Auto) 5.4 % Eos % (Auto) 0.5 % Baso % (Auto) 0.1 % Neut # (Auto) 11.00 H (1.4-6.5) K/uL Lymph # (Auto) 1.27 (1.2-3.4) K/uL Upton # (Auto) 0.71 (0.24-0.82) K/uL Eos # (Auto) 0.07 (0-0.50) K/uL Baso # (Auto) 0.01 (0-0.2) K/uL Immature Gran # (Auto) 0.03 H (0.00-0.02) K/uL POC Sodium (135-144) mmol/L Sodium 140 (136-145) mmol/L POC Potassium (3.3-5.0) mmol/L Potassium 3.4 L (3.5-5.1) mmol/L POC Chloride (101-112) mmol/L Chloride 109 H (98-107) mmol/L Carbon Dioxide 22 (21-32) mmol/L POC Total CO2 (24-31) mmol/L Anion Gap 9 (3-11) POC Anion Gap (16-25) mmol/L POC BUN (7-18) mg/dl BUN 14 (6-23) mg/dl Creatinine 0.66 (0.6-1.2) mg/dl POC Creatinine (0.6-1.3) mg/dl Est Cr Clr Drug Dosing Not Reportable Est GFR ( Amer) 122.8 ml/min Est GFR (Non-Af Amer) 105.9 ml/min BUN/Creatinine Ratio 21.2 H (10-20) Glucose 118 H (70-99(Fasting)) mg/dl POC Glucose (other) (70-99) mg/dl Lactate (0.4-2.0) mmol/L Calcium 8.7 (8.5-10.1) mg/dl POC Ioniz Calcium Era (1.12-1.32) mmol/l Total Bilirubin 0.7 (0.2-1.0) mg/dl AST 9 L (13-39) U/L ALT 7 (7-52) U/L Alkaline Phosphatase 48 (34-104) U/L Total Protein 6.7 (6.0-8.3) gm/dl Albumin 4.1 (3.4-5.0) gm/dl Globulin 2.6 (2.5-4.0) gm/dl Albumin/Globulin Ratio 1.6 (0.9-2) SARS-CoV-2, RNA, NAAT NEGATIVE (NEGATIVE) Blood Type Antibody Screen 10/16/22 10/16/22 10/16/22 Range/Units 03:45 04:01 07:04 WBC (4.8-10.8) K/ul RBC (3.93-5.22) M/uL Hgb (12.0-16.0) g/dl POC Hgb 12.9 (12.0-16.0) g/dl Hct (34.1-44.9) % POC Hct 38 (37-47) % MCV (80.0-100.0) fL MCH (25.0-34.0) pg MCHC (32.0-36.0) g/dL RDW Std Deviation (36.4-46.3) fL RDW Coeff of Doreen (11.5-14.5) % Plt Count (130-400) K/uL MPV (9.4-12.3) fL Immature Gran % (Auto) % Neut % (Auto) % Lymph % (Auto) % Upton % (Auto) % Eos % (Auto) % Baso % (Auto) % Neut # (Auto) (1.4-6.5) K/uL Lymph # (Auto) (1.2-3.4) K/uL Upton # (Auto) (0.24-0.82) K/uL Eos # (Auto) (0-0.50) K/uL Baso # (Auto) (0-0.2) K/uL Immature Gran # (Auto) (0.00-0.02) K/uL POC Sodium 143 (135-144) mmol/L Sodium (136-145) mmol/L POC Potassium 3.0 L (3.3-5.0) mmol/L Potassium (3.5-5.1) mmol/L POC Chloride 107 (101-112) mmol/L Chloride (98-107) mmol/L Carbon Dioxide (21-32) mmol/L POC Total CO2 20 L (24-31) mmol/L Anion Gap (3-11) POC Anion Gap 20.0 (16-25) mmol/L POC BUN 13 (7-18) mg/dl BUN (6-23) mg/dl Creatinine (0.6-1.2) mg/dl POC Creatinine 0.6 (0.6-1.3) mg/dl Est Cr Clr Drug Dosing Est GFR ( Amer) ml/min Est GFR (Non-Af Amer) ml/min BUN/Creatinine Ratio (10-20) Glucose (70-99(Fasting)) mg/dl POC Glucose (other) 112 H (70-99) mg/dl Lactate 1.2 (0.4-2.0) mmol/L Calcium (8.5-10.1) mg/dl POC Ioniz Calcium Era 1.13 (1.12-1.32) mmol/l Total Bilirubin (0.2-1.0) mg/dl AST (13-39) U/L ALT (7-52) U/L Alkaline Phosphatase (34-104) U/L Total Protein (6.0-8.3) gm/dl Albumin (3.4-5.0) gm/dl Globulin (2.5-4.0) gm/dl Albumin/Globulin Ratio (0.9-2) SARS-CoV-2, RNA, NAAT (NEGATIVE) Blood Type O Positive Antibody Screen NEGATIVE 10/17/22 10/17/22 Range/Units 07:48 07:48 WBC 10.95 H (4.8-10.8) K/ul RBC 3.35 L (3.93-5.22) M/uL Hgb 10.3 L (12.0-16.0) g/dl POC Hgb (12.0-16.0) g/dl Hct 30.0 L (34.1-44.9) % POC Hct (37-47) % MCV 89.6 (80.0-100.0) fL MCH 30.7 (25.0-34.0) pg MCHC 34.3 (32.0-36.0) g/dL RDW Std Deviation 41.5 (36.4-46.3) fL RDW Coeff of Doreen 12.7 (11.5-14.5) % Plt Count 209 (130-400) K/uL MPV 9.7 (9.4-12.3) fL Immature Gran % (Auto) 0.4 % Neut % (Auto) 73.8 % Lymph % (Auto) 17.8 % Upton % (Auto) 7.6 % Eos % (Auto) 0.2 % Baso % (Auto) 0.2 % Neut # (Auto) 8.09 H (1.4-6.5) K/uL Lymph # (Auto) 1.95 (1.2-3.4) K/uL Upton # (Auto) 0.83 H (0.24-0.82) K/uL Eos # (Auto) 0.02 (0-0.50) K/uL Baso # (Auto) 0.02 (0-0.2) K/uL Immature Gran # (Auto) 0.04 H (0.00-0.02) K/uL POC Sodium (135-144) mmol/L Sodium 140 (136-145) mmol/L POC Potassium (3.3-5.0) mmol/L Potassium 3.4 L (3.5-5.1) mmol/L POC Chloride (101-112) mmol/L Chloride 112 H (98-107) mmol/L Carbon Dioxide 24 (21-32) mmol/L POC Total CO2 (24-31) mmol/L Anion Gap 4 (3-11) POC Anion Gap (16-25) mmol/L POC BUN (7-18) mg/dl BUN 6 (6-23) mg/dl Creatinine 0.64 (0.6-1.2) mg/dl POC Creatinine (0.6-1.3) mg/dl Est Cr Clr Drug Dosing 116.1 Est GFR ( Amer) 124.0 ml/min Est GFR (Non-Af Amer) 107.0 ml/min BUN/Creatinine Ratio 9.4 L (10-20) Glucose 87 (70-99(Fasting)) mg/dl POC Glucose (other) (70-99) mg/dl Lactate (0.4-2.0) mmol/L Calcium 7.9 L (8.5-10.1) mg/dl POC Ioniz Calcium Era (1.12-1.32) mmol/l Total Bilirubin 0.8 (0.2-1.0) mg/dl AST 8 L (13-39) U/L ALT 7 (7-52) U/L Alkaline Phosphatase 37 (34-104) U/L Total Protein 5.5 L (6.0-8.3) gm/dl Albumin 3.2 L (3.4-5.0) gm/dl Globulin 2.3 L (2.5-4.0) gm/dl Albumin/Globulin Ratio 1.4 (0.9-2) SARS-CoV-2, RNA, NAAT (NEGATIVE) Blood Type Antibody Screen PE: General: Alert, orientedx3, NAD CVS: S1S2 RRR Lungs; CTAB Abd: soft, NT, ND, BS+, Incisions: Clean, dry, intact Perineum intact, no VB Ext; NT, no edema AP: 47 yo s/p Vag cuff repair, diag laparoscopy, pod# 1 VSS Afebrile doing well Continue routine postop care Encourage ambulation, PO intake All questions were answered D/C home , f/u in office Results & Data ([facility]) Vital Signs (Past 12 Hours) Vital Signs Temp Pulse Resp BP Pulse Ox O2 Del Method 10/17/22 07:29 36.7 C 84 16 120/73 97 Room Air 10/17/22 04:30 36.7 C 80 16 120/67 Room Air 10/17/22 00:30 36.4 C L 72 16 111/68 99 Room Air
--- NOTE | 2022-10-27 01:49 | Discharge Summary (DS) ---
DATE OF ADMISSION: 10/16/2022. DATE OF DISCHARGE: 10/17/2022 CHIEF COMPLAINT: This is a 47-year-old status post robotic hysterectomy 3 months ago. The patient p resented on 10/15/2022 to the Emergency Room with vaginal dehiscence and evisceration of bowel throug h the vagina. She underwent repair of the vaginal dehiscence in surgery. The patient did well post surgery and was discharged home the next day in stable condition. PAST MEDICAL HISTORY: The patient has history of asthma, anxiety, and kidney stones. PAST SURGICAL HISTORY: History of left breast biopsy and neurologic surgery as well as hysterectomy. SOCIAL HISTORY: The patient denies tobacco, drug or alcohol use. The patient is and lives w ith spouse. ALLERGIES: No known drug allergies. REVIEW OF SYSTEMS: Negative. PHYSICAL EXAMINATION: VITAL SIGNS: On 10/17/2022, temperature 36.7, pulse is 84, respirations 16, blood pressure is 120/73 . HEART: S1 and S2, regular rhythm and rate. LUNGS: Clear to auscultation bilaterally. ABDOMEN: Nontender, nondistended. Incision clean, dry and intact. EXTREMITIES: No cyanosis, clubbing or edema. CONDITION ON DISCHARGE: Stable. OPERATIONS: Repair of vaginal dehiscence and diagnostic laparoscopy. DISCHARGE DIAGNOSIS: Same. PLAN ON DISCHARGE: The patient is discharged home with instructions regarding activity, diet, and [facility] appointment and medications. Job ID: [id number]
== END 2022-10-17 11:02 | disposition home or self-care (01) ==
LOC: ED 03:18 → 4E1 03:18